=== PATIENT | female | born 1955 | race Hispanic/Latino ===

== ENCOUNTER 2021-04-30 05:28 | Observation (INO) | payer MEDICARE ==
[2021-04-26 12:31] LABS: BASOPHILS % 0.8 % (0.0-1.0); EOSINOPHILS # (AUTO) 0.1 (0.0-0.4); EOSINOPHILS % 2.2 % (0.0-6.0); HEMATOCRIT 44.3 % (34.2-44.1); HEMOGLOBIN 15.6 g/dL (12.0-16.0); LYMPHOCYTES # (AUTO) 1.5 (1.0-3.2); LYMPHOCYTES % 30.2 % (18.0-39.1); MEAN CORPUSCULAR HEMOGLOBIN 31.7 pg (28-32); MEAN CORPUSCULAR HGB CONC 35.2 g/dL (31-35); MONOCYTES # (AUTO) 0.4 (0.2-0.8); MONOCYTES % 7.8 % (4.4-11.3); PLATELET COUNT 201 x10e3/uL (140-360); RED BLOOD COUNT 4.92 x10e6/uL (3.6-5.1); RED CELL DISTRIBUTION WIDTH 11.9 % (11.7-14.4)
[2021-04-26 12:52] LABS: ANION GAP 16.5 mmol/L (8-16); CALCIUM 10.2 mg/dL (8.4-10.2); CREATININE, SERUM 1.08 mg/dL (0.57-1.11); POTASSIUM 3.5 mmol/L (3.5-5.1)
[~2021-04-30] VITALS: Ht 160 cm; Wt 74.4 kg
[~2021-04-30 05:28] MED LIST: LEVOTHYROXINE50 MCG PO; OLMSRTN-AMLDPN1 EAC3; POTASSIUM99 M1; TRAMADOL HCL100 MG
[2021-04-30] MEDS ORDERED: SODIUM CHLORIDE 0.9% 50ML 100 ML ONE (06:09)
[2021-04-30] MEDS ORDERED: CELECOXIB 200 MG CAP ONE (06:09)
[2021-04-30] MEDS ORDERED: DEXAMETHASONE SOD PHOS 10 MG/1 ML VIAL ONE (06:09)
[2021-04-30] MEDS ORDERED: SODIUM CHLORIDE 0.9% 500ML 500 ML ONE (06:09)
[2021-04-30] MEDS ORDERED: GABAPENTIN 300 MG CAP ONE (06:09)
[2021-04-30] MEDS ORDERED: TRANEXAMIC ACID 1,000 MG/10 ML ML ONE (06:10)
[2021-04-30] MEDS ORDERED: Vancomycin IV 1,000 MG ONE (06:10)
[2021-04-30] MEDS ORDERED: ROPIVACAINE 246.25 MG, EPINEPHRINE HCL 1:1000 1ML 0.5 MG, CLONIDINE HCL 0.08 MG, KETORO... INJ ONE ×5 (06:45)
[2021-04-30] MEDS ORDERED: MIDAZOLAM HCL 2 MG/2 ML VIAL ONE (07:11)
[2021-04-30] MEDS ORDERED: FENTANYL CITRATE/PF 100MCG/2 ML INJ ONE ×3 (07:12→12:19)
[2021-04-30] MEDS ORDERED: SODIUM CHLORIDE 0.9% 1000ML 1,000 ML IV SCH (08:45)
[2021-04-30] MEDS ORDERED: KETOROLAC TROMETHAMINE 30 MG/ML VIAL IV PRN (08:45)
[2021-04-30] MEDS ORDERED: ACETAMINOPHEN 650 MG SUPP PR PRN (08:45)
[2021-04-30] MEDS ORDERED: DIPHENHYDRAMINE HCL INJ 50 MG/ML VIAL IV PRN (08:45)
[2021-04-30] MEDS ORDERED: ONDANSETRON HCL INJ 2MG/ML 2ML 2 MG/ML VIAL IV PRN (08:45)
[2021-04-30] MEDS ORDERED: DOCUSATE SODIUM 100 MG CAP PO PRN (08:45)
[2021-04-30] MEDS ORDERED: HYDROCODONE/APAP 7.5MG-325MG 1 EA TAB PO PRN (08:45)
[2021-04-30] MEDS ORDERED: HYDROCODONE/APAP 5MG-325MG TAB PO PRN (08:45)
[2021-04-30 09:41] VITALS: BP 114/61
[2021-04-30] MEDS: CELECOXIB 100 MG CAP PO SCH ×2 (10:36→15:50)
[2021-04-30] MEDS: ASPIRIN 325 MG TAB PO SCH ×2 (10:36→15:50)
[2021-04-30 11:02] VITALS: BP 114/61
[2021-04-30] MEDS ORDERED: Cefazolin 1 GM in SODIUM CHLORIDE 0.9% 50ML 50 ML IV SCH (14:00)
[2021-04-30] MEDS ORDERED: SODIUM CHLORIDE 0.9% 250ML 250 ML ONE (15:49)
[2021-04-30 15:54] VITALS: BP 116/94
[2021-04-30] MEDS ORDERED: LIDOCAINE HCL 2% LOCAL INJ 5 ML SDV VIAL INJ ONE (17:40)
[2021-04-30] MEDS ORDERED: POVIDONE IODINE 0.05% 0.05 % ML PO ONE (17:40)
[2021-04-30] MEDS ORDERED: PROPOFOL IV EMULSION 10 MG/ML 20 ML VIAL ONE (17:40)
[2021-04-30] MEDS ORDERED: ONDANSETRON HCL INJ 2MG/ML 2ML 2 MG/ML VIAL ONE (17:40)
[2021-04-30] MEDS ORDERED: SEVOFLURANE INHAL SOLN 250 ML PEN BTL ONE (17:40)
[2021-04-30] MEDS ORDERED: DEXAMETHASONE SOD PHOS INJ 4 MG/ML SDV ONE (17:40)
[2021-04-30] MEDS ORDERED: GLYCOPYRROLATE INJ 0.2 MG/ML VIAL ONE (17:40)
[2021-04-30] MEDS ORDERED: ROPIVACAINE 0.5% 5 MG/ML 30 ML SDV ONE (17:52)
[2021-04-30] MEDS ORDERED: ONDANSETRON HCL 4 MG ORAL DISINTEGRATING TAB PO PRN (18:30)
[2021-04-30] MEDS ORDERED: ZOLPIDEM TARTRATE 5 MG TAB PO PRN (21:00)
[2021-05-01] MEDS ORDERED: ACETAMINOPHEN 1000 MG/100 ML IV PRN (08:45)
[2021-05-01] MEDS ORDERED: CELECOXIB 200 MG CAP PO SCH (09:00)
== END 2021-04-30 18:26 | disposition home or self-care (01) ==
LOC: OR 05:28 → PACU V 08:33 → MED/SURG 09:36
PROVIDERS: ADMIT Specialist; ATTEND Specialist
DX: M17.11 Unilateral primary osteoarthritis, right knee (principal); I10 Essential (primary) hypertension; M06.9 Rheumatoid arthritis, unspecified; Z01.812 Encounter for preprocedural laboratory examination; Z01.818 Encounter for other preprocedural examination; Z20.822 Contact with and (suspected) exposure to COVID-19; E03.9 Hypothyroidism, unspecified
CPT/HCPCS: 27447; 36415; 71046; 73560; 80048; 85025; 86850; 86900; 86920; 93005; 94799; 97110; 97116 ×2; 97161; 97530; C1713 ×2; C1776 ×3; G0378; J0171; J0690; J1100 ×2; J1885; J2001; J2250; J2405; J2704; J2795; J3010; J3370; J7040; J7050; U0002